=== PATIENT | female | born 1955 | race American Indian/Alaskan Native ===

== ENCOUNTER 2021-08-29 21:16 | Observation (INO) | payer BC ==
--- NOTE | 2021-08-30 09:59 | Emergency Department Report ---
ED GI Bleed HPI - General Chief complaint: GI Bleed Stated complaint: RECTAL BLEEDING Time Seen by Provider: 08/30/21 09:48 Source: patient, RN notes reviewed Mode of arrival: Ambulatory Limitations: No Limitations - History of Present Illness Initial comments: The patient was evaluated in the emergency department for symptoms described in the history of present illness. He/she was evaluated in the context of the global COVID-19 pandemic, which necessitated consideration that the patient might be at risk for infection with the virus that causes COVID-19. Institutional protocols and algorithms that pertain to the evaluation of patients at risk for COVID-19 are in a state of rapid change based on information released by regulatory bodies including the CDC and federal and state organizations. These policies and algorithms were followed during the patient's care in the emergency department. Please note that these policies, procedures and recommendations changed on a rapid basis. During the history and physical examination, I am chaperoned by nurse Balbir The patient is a 65-year-old female with a history of hypertension, who presents to the ER today with a complaint of painless bright red blood per rectum, only with defecation. This started yesterday. The patient does not take blood thinning medications. The patient reports having had a colonoscopy about 10 years ago, which she believes is remarkable for polyps. She otherwise feels like she is at her baseline, and denies additional injuries and complaints MD complaint: gross hematochezia -: Sudden Radiation: none Quality: painless Consistency: intermittent Improves with: none Worsens with: other (Defecation) Context: history of GI bleed Associated Symptoms: denies other symptoms - Related Data Previous Rx's Medication Instructions Recorded Last Taken Type Butalb/Acetamin/Caff 50-325-40 1 tab PO Q8H PRN #15 tab 07/17/15 Unknown Rx [Fioricet] cloNIDine [Catapres] 0.2 mg PO BID #60 tablet 07/17/15 Unknown Rx Allergies Allergy/AdvReac Type Severity Reaction Status Date / Time No Known Allergies Allergy Verified 07/17/15 10:19 ED Review of Systems ROS: Stated complaint: RECTAL BLEEDING Other details as noted in HPI Comment: All other systems reviewed and negative Gastrointestinal: hematochezia ED Past Medical Hx - Past Medical History Hx Hypertension: Yes Hx Diabetes: Yes Additional medical history: HIGH CHOLESTEROL - Surgical History Additional Surgical History: THYROIDECTOMY. TUBAL LIGATION. RIGHT ANKLE SURGERY - Social History Smoking Status: Never Smoker Substance Use Type: None - Medications Home Medications: Home Medications Medication Instructions Recorded Confirmed Last Taken Type Butalb/Acetamin/Caff 50-325-40 1 tab PO Q8H PRN #15 tab 07/17/15 Unknown Rx [Fioricet] cloNIDine [Catapres] 0.2 mg PO BID #60 tablet 07/17/15 Unknown Rx ED Physical Exam - General Limitations: No Limitations General appearance: alert, in no apparent distress - Head Head exam: Present: atraumatic, normocephalic - Eye Eye exam: Present: normal appearance, EOMI. Absent: nystagmus - ENT ENT exam: Present: normal exam, normal orophraynx, mucous membranes moist, normal external ear exam - Neck Neck exam: Present: normal inspection, full ROM. Absent: tenderness, meningismus - Respiratory Respiratory exam: Present: normal lung sounds bilaterally. Absent: respiratory distress, wheezes, rales, rhonchi, stridor, decreased breath sounds - Cardiovascular Cardiovascular Exam: Present: regular rate, normal rhythm, normal heart sounds. Absent: bradycardia, tachycardia, irregular rhythm, systolic murmur, diastolic murmur, rubs, gallop - GI/Abdominal GI/Abdominal exam: Present: soft. Absent: distended, tenderness, guarding, rebound, rigid, pulsatile mass - Rectal Rectal exam: Present: normal inspection (Patient provides consent for external and internal rectal examination), normal rectal tone, heme (+) stool, bloody stool, other (Chaperoned by nurse Betzy Mcgregor) - Extremities Exam Extremities exam: Present: normal inspection, full ROM, other (2+ pulses noted in the bilateral upper and lower extremities. There is no palpable cord. negative Homans sign. Muscular compartments are soft. The pelvis is stable.). Absent: pedal edema, calf tenderness - Back Exam Back exam: Present: normal inspection. Absent: tenderness, CVA tenderness (R), CVA tenderness (L), paraspinal tenderness, vertebral tenderness - Neurological Exam Neurological exam: Present: alert, oriented X3, normal gait, other (No facial droop. Tongue midline. Extraocular movements intact bilaterally. Facial sensation intact to light touch in V1, V2, V3 distribution bilaterally. 5 and a 5 strength in 4 extremities. Sensation intact to light touch in 4 extremi ties.). Absent: motor sensory deficit - Psychiatric Psychiatric exam: Present: anxious - Skin Skin exam: Present: warm, dry, intact, normal color. Absent: rash ED Course Vital Signs 08/29/21 21:36 Temperature 98.1 F Pulse Rate 85 Respiratory 16 Rate Blood Pressure 153/99 O2 Sat by Pulse 99 Oximetry - Reevaluation(s) Reevaluation #1: 08/30/21 10:41 Differential diagnosis, including but not limited to: Diverticulosis, internal hemorrhoid, angiodysplasia, malignancy Assessment and plan: 65-year-old female, who was afebrile, with reassuring vital signs, presenting to the ER today with complaint of painless rectal bleeding, only with defecation. Last had a colonoscopy approximately [address] patient on cardiac cath technician, obtain appropriate laboratory studies. Currently awaiting callback from GI on-call, to discuss. CBC unremarkable. Chemistry pending. PT, INR within normal limits. PTT 65, suspect laboratory error. Anticipate admission. 08/30/21 10:41 08/30/21 10:49 Chemistry reviewed and appreciated. Contacted GI on-call, Dr. Escobedo. Discussed the patient's history, physical, laboratory studies and clinical impression. He will follow in consultation, and agrees with plan for admission. Hospital physician, Dr. Cho, to admit patient to the medical service. Discussed this with the patient, she is agreeable to the plan of care ED Medical Decision Making - Lab Data Result diagrams: 08/30/21 Unknown 08/30/21 Unknown Vital Signs 08/29/21 21:36 Temperature 98.1 F Pulse Rate 85 Respiratory 16 Rate Blood Pressure 153/99 O2 Sat by Pulse 99 Oximetry Lab Results 08/30/21 08/30/21 Range/Units Unknown Unknown WBC 6.5 (4.5-11.0) K/mm3 RBC 3.91 (3.65-5.03) M/mm3 Hgb 10.7 (10.1-14.3) gm/dl Hct 32.1 (30.3-42.9) % MCV 82 (79-97) fl MCH 27 L (28-32) pg MCHC 33 (30-34) % RDW 14.8 (13.2-15.2) % Plt Count 333 (140-440) K/mm3 PT 14.1 (12.2-14.9) Sec. INR 0.98 (0.87-1.13) APTT 65.0 H* (24.2-36.6) Sec. - EKG Data -: EKG Interpreted by Me EKG shows normal: sinus rhythm Rate: normal - EKG Data When compared to previous EKG there are: previous EKG unavailable 08/30/21 10:37 The EKG is interpreted at 09: 4 0 Sinus rhythm, bradycardia, 58 bpm. Normal axis, normal intervals, normal P wave axis. Minimal motion artifact. This EKG is not a STEMI Critical care attestation.: If time is entered above; I have spent that time in minutes in the direct care of this critically ill patient, excluding procedure time. ED Disposition Clinical Impression: GI bleed Disposition: ADMITTED INPATIENT Is pt being admited?: Yes Does the pt Need Aspirin: No Condition: Good Referrals: PRIMARY CARE, [Primary Care Provider] - 3-5 Days Forms: Accompanied Note
[2021-08-30 10:27] LABS: Hematocrit 32.1 % (30.3-42.9); Hemoglobin 10.7 gm/dl (10.1-14.3); Mean Corpuscular HGB Conc 33 % (30-34); Mean Corpuscular Volume 82 fl (79-97); Platelet Count 333 K/mm3 (140-440); Red Blood Count 3.91 M/mm3 (3.65-5.03); Red Cell Distribution Width 14.8 % (13.2-15.2)
[2021-08-30 10:29] LABS: INR 0.98 (0.87-1.13)
[2021-08-30 10:42] LABS: Alanine Aminotransferase 16 units/L (7-56); Albumin 4.7 g/dL (3.9-5); BUN/Creatinine Ratio 26; Blood Urea Nitrogen 26 mg/dL (7-17); Calcium 9.5 mg/dL (8.4-10.2); Hemolysis Index 0
[2021-08-30] MEDS ORDERED: SODIUM CHLORIDE 0.9% 1000 ML 1,000 ML IV ONE (10:44)
[2021-08-30] MEDS ORDERED: PANTOPRAZOLE 40 MG INJ IV ONE ×2 (10:48→14:00)
[2021-08-30] MEDS ORDERED: ALBUTEROL 2.5 MG/3 ML NEBU IH PRN (11:25)
[2021-08-30] MEDS ORDERED: ONDANSETRON 4 MG/2 ML INJ IV PRN (11:25)
[2021-08-30] MEDS ORDERED: oxyCODONE /ACETAMINOPHEN 5-325MG TAB PO PRN (11:25)
[2021-08-30] MEDS ORDERED: HYDROmorphone 0.5 MG/0.5 ML INJ IV PRN (11:25)
[2021-08-30] MEDS ORDERED: ACETAMINOPHEN 325 MG TAB PO PRN (11:25)
--- NOTE | 2021-08-30 11:25 | History and Physical Report ---
History of Present Illness Chief complaint: And bleeding when I go to the bathroom, I also feel dizzy. History of present illness: 65 YO Female with HTN, Obesity Hypoventilation Syndrome, DM, HLD, Metabolic Syndrome presents to ED for evaluation. Patient reports ambulating when I go to the bathroom". Patient states that over the past 1 day she has experienced multiple episodes of bright red blood per rectum with defecation. Patient also acknowledges concomitant dizziness, lightheadedness and possible loss of co nsciousness. Patient transported to [facility] via private vehicle for further care and evaluation of the aforementioned symptoms. The patient was seen and evaluated in the emergency department. All lab and imaging studies reviewed. Patient found to be Hemoccult positive in the emergency department. Patient also found to have active GI bleed. Patient also found to have a blood pressure of 182/95 mmHg. Patient admitted to telemetry due to increased risk of worsening symptoms. GI team consulted in ED. Patient initiated on GI bleed protocol. Patient pending endoscopy as per GI team. Patient denies fever, chills, chest pain, palpitation, productive cough, skin rash, recent contact, trauma, ingestion of food/water from new or different sources, or known exposure to COVID-19. No prior admission for review. All medication listed at time of admission has been reconciled. Advanced care planning conducted in ED. Past History Past Medical History: diabetes, hypertension, hyperlipidemia, other (See HPI) Past Surgical History: thyroidectomy, Other (Tubal ligation, right ankle surgery) Social history: , lives with family Family history: diabetes, hypertension Medications and Allergies Allergies Allergy/AdvReac Type Severity Reaction Status Date / Time No Known Allergies Allergy Verified 07/17/15 10:19 Home Medications Medication Instructions Recorded Confirmed Last Taken Type Insulin Glargine 36 ampul 08/30/21 08/29/21 19:00 History 36 Labetalol 300mg TAB 450 08/30/21 08/29/21 19:00 History Lovastatin 100 08/30/21 08/29/21 09:00 History NIFEdipine [Adalat cc] 90 08/30/21 08/29/21 09:00 History Prazosin [Minipress] 2 08/30/21 08/29/21 09:00 History Zocor 20 08/30/21 08/30/21 12:40 History 20 metFORMIN [Glucophage] 500 BID 08/30/21 08/29/21 19:00 History Active Meds: Active Medications Sodium Chloride (Nacl 0.9% 1000 Ml) 1,000 mls @ 999 mls/hr IV BOLUS ONE Stop: 08/30/21 11:44 Review of Systems Constitutional: fatigue, weakness, no weight loss, no weight gain, no fever, no chills Ears, nose, mouth and throat: no ear pain, no tinnitis, no decreased hearing, no nose pain, no nasal congestion Breasts: no change in shape, no mass Cardiovascular: lightheadedness, no chest pain, no orthopnea, no rapid/irregular heart beat, no syncope Respiratory: no cough, no excessive sputum, no hemoptysis Gastrointestinal: BRBPR, no abdominal pain, no nausea, no vomiting, no diarrhea Genitourinary Female: no pelvic pain, no flank pain, no dysuria, no urinary frequency, no urgency Rectal: no pain, no incontinence, no bleeding Musculoskeletal: no neck stiffness, no shooting arm pain Integumentary: no rash, no pruritis Neurological: syncope, no head injury, no paralysis, no parathesias, no tingling Psychiatric: no anxiety, no sleep disturbances, no insomnia, no hypersomnia, no suicidal ideation, no hallucinations Endocrine: no cold intolerance, no heat intolerance, no polydipsia, no nocturia, no flushing, no weight change Hematologic/Lymphatic: no easy bruising, no easy bleeding, no lymphedema Allergic/Immunologic: no allergic rhinitis, no wheezing, no anaphylaxis Exam - Constitutional Vitals: Temp Pulse Resp BP Pulse Ox 98.1 F 85 16 153/99 99 08/29/21 21:36 08/29/21 21:36 08/29/21 21:36 08/29/21 21:36 08/29/21 21:36 General appearance: Present: mild distress, obese - EENT Eyes: Present: PERRL ENT: hearing intact, clear oral mucosa - Neck Neck: Present: supple, normal ROM - Respiratory Respiratory effort: normal Respiratory: bilateral: CTA - Cardiovascular Heart Sounds: Present: S1 & S2. Absent: rub, click - Extremities Extremities: pulses symmetrical, No edema Peripheral Pulses: within normal limits - Abdominal General gastrointestinal: Present: soft, non-tender, non-distended, normal bowel sounds Female genitourinary: Present: normal - Integumentary Integumentary: Present: clear, warm, dry - Musculoskeletal Musculoskeletal: gait normal, strength equal bilaterally - Psychiatric Psychiatric: appropriate mood/affect, intact judgment & insight - Neurologic Neurologic: CNII-XII intact, moves all extremities Results - Labs CBC & Chem 7: 08/30/21 Unknown 08/30/21 Unknown Labs: Abnormal lab results 08/30/21 08/30/21 08/30/21 Range/Units Unknown Unknown Unknown MCH 27 L (28-32) pg APTT 65.0 H* (24.2-36.6) Sec. Sodium 135 L (137-145) mmol/L Potassium 3.5 L (3.6-5.0) mmol/L Chloride 97.8 L (98-107) mmol/L BUN 26 H (7-17) mg/dL Glucose 241 H (65-100) mg/dL Total Protein 8.4 H (6.3-8.2) g/dL Assessment and Plan - Patient Problems (1) Gastrointestinal hemorrhage Current Visit: Yes Status: Acute Qualifiers: GI bleed type/associated pathology: anorectal hemorrhage Qualified Code(s): K62.5 - Hemorrhage of anus and rectum Plan to address problem: GI bleed protocol: CBC, bowel rest, IV PPI therapy, GI team consulted, serial a bdominal exam, supportive care, will consider packed red blood cell transfusion if patient hemoglobin drops greater than 1 g in 24-hour period. (2) Blood loss anemia Current Visit: Yes Status: Acute Plan to address problem: Supportive care, initiate GI bleed protocol. CBC, repeat CBC in a.m. (3) Obesity hypoventilation syndrome Current Visit: Yes Status: Acute Plan to address problem: Balanced diet, increase physical activity at discharge, outpatient pulmonary follow-up for sleep study. (4) Accelerated hypertension Current Visit: Yes Status: Acute Plan to address problem: Monitor blood pressure every shift, continue medical management. (5) Diabetes Current Visit: Yes Status: Acute Plan to address problem: Consistent carbohydrate diet, Accu-Chek, insulin protocol, hypoglycemia protocol. (6) Hyperlipidemia Current Visit: Yes Status: Acute Qualifiers: Hyperlipidemia type: mixed hyperlipidemia Qualified Code(s): E78.2 - Mixed hyperlipidemia Plan to address problem: Low-cholesterol diet, statin therapy, supportive care. (7) Metabolic syndrome Current Visit: Yes Status: Acute Plan to address problem: Balanced diet, weight reduction, increase physical activity discharge, continue statin therapy. (8) DVT prophylaxis Current Visit: Yes Status: Acute Plan to address problem: SCD to bilateral lower extremities while in bed, hold anticoagulation for now due to active GI bleed. (9) Advance care planning Current Visit: Yes Status: Acute Plan to address problem: Disease education data, care plan discussed, diagnosis discussed, prognosis discussed, patient is full code. Patient acknowledges understanding and agreement with care plan, +30 minutes. (10) Preventative health care Current Visit: Yes Status: Acute Plan to address problem: Patient counseled regarding balanced diet, increase physical activity discharge, weight reduction, meal planning. Outpatient follow-up with primary care physician for all age and risk factor appropriate screening tests. +30 minutes.
[2021-08-30] MEDS ORDERED: DEXTROSE 50% IN WATER (25GM) 50 ML SYRINGE IV PRN (12:46)
[2021-08-30] MEDS: amLODIPine 5 MG TAB PO SCH (13:06)
[2021-08-30] MEDS: hydroCHLOROthiazide 12.5 MG CAP PO SCH (13:07)
[2021-08-30] MEDS: INSULIN LISPRO 100 UNIT/ML SUB-Q SCH ×2 (17:20→23:19)
[2021-08-30] MEDS ORDERED: POLYETHYLENE GLYCOL/ELECT SOLN 4000 ML PO SCH (18:37)
[2021-08-30] MEDS ORDERED: PRAVASTATIN 40 MG TAB PO SCH (22:00)
[2021-08-30] MEDS ORDERED: ZOCOR 20 MG PO SCH (22:00)
[2021-08-30] MEDS: PANTOPRAZOLE 40 MG INJ IV SCH (23:25)
[2021-08-30] MEDS ORDERED: hydrALAZINE 20 MG/1 ML INJ IV PRN (23:34)
[2021-08-31 00:07] LABS: Basophils % (Auto) 0.8 % (0.0-1.8); Eosinophils # (Auto) 0.2 K/mm3 (0.0-0.4); Hematocrit 29.6 % (30.3-42.9); Hemoglobin 9.9 gm/dl (10.1-14.3); Lymphocytes # (Auto) 1.8 K/mm3 (1.2-5.4); Lymphocytes % (Auto) 31.4 % (13.4-35.0); Mean Corpuscular HGB Conc 33 % (30-34); Mean Corpuscular Volume 82 fl (79-97); Monocytes # (Auto) 0.4 K/mm3 (0.0-0.8); Monocytes % (Auto) 7.1 % (0.0-7.3); Platelet Count 317 K/mm3 (140-440); Red Blood Count 3.62 M/mm3 (3.65-5.03); Red Cell Distribution Width 14.7 % (13.2-15.2)
[2021-08-31 00:14] LABS: Alanine Aminotransferase 14 units/L (7-56); Albumin 4.2 g/dL (3.9-5); BUN/Creatinine Ratio 19; Blood Urea Nitrogen 19 mg/dL (7-17); Calcium 9.4 mg/dL (8.4-10.2); Hemolysis Index 6
--- NOTE | 2021-08-31 03:00 | Consultation ---
DATE OF CONSULTATION: 08/30/2021 REFERRING PHYSICIAN: Dr. Rolf Cho. INDICATIONS: 1. Anemia. 2. Gastrointestinal bleed. HISTORY OF PRESENT ILLNESS: The patient is a 65-year-old black female with history of hypertension, obesity and hypoventilation syndrome as well as diabetes and metabolic syndrome. The patient reports her last colonoscopy was over 10 years ago with polyps noted. The patient presents with 2 days of multiple bouts of approximately 4-5 episodes of bright red blood per rectum as well as some dark stools. She reports mild epigastric pain. Denies any hematemesis. She reports some nausea without vomiting. No recent weight loss or anemia. The patient subsequently came to the Emergency Room, was noted to have heme positive stool, admitted and GI consulted. No other specific complaints. PAST MEDICAL HISTORY: 1. Diabetes. 2. Hypertension. 3. High cholesterol. MEDICATIONS: Reviewed and updated in chart. ALLERGIES: No known drug allergies. SOCIAL HISTORY: Denies alcohol, tobacco or drug abuse. FAMILY HISTORY: Negative for colon cancer, IBD, or liver disease. REVIEW OF SYSTEMS: GENERAL: Reports some weakness. HEENT: Denies visual complaints, denies tinnitus. PULMONARY: Denies shortness of breath, chest pain. GASTROINTESTINAL: Reports rectal bleeding. All points of 13-point review of system otherwise negative. PHYSICAL EXAMINATION: VITAL SIGNS: Temperature of 98.0, pulse 60, respirations 18, blood pressure 170/70. GENERAL: Well nourished female, in no acute distress. HEENT: Pupils equal, round and reactive. PULMONARY: Clear to auscultation bilaterally. CARDIOVASCULAR: Regular rate and rhythm. Normal S1, S2. ABDOMEN: Positive bowel sounds, soft. SKIN: No obvious rashes. LABORATORY DATA: Pertinent for white count of 6.5, hemoglobin and hematocrit of 10.7 and 32.1, platelet count of 333. Coags within normal limits except for PTT of 65. Chem-7 within normal limits. LFTs within normal limits. ASSESSMENT: A 65-year-old female with history of colon polyps over 10 years ago with multiple medical problems as noted above, now presents with mainly bright red and occasional dark stools with noted anemia. Most likely lower gastrointestinal bleed is secondary to diverticular bleed, but also possibility of other pathology. PLAN: 1. Follow hematocrit and transfuse as needed. 2. Clear liquid diet with n.p.o. after midnight. 3. Avoid NSAIDs and aspirin. 4. Antiemetics and pain medications per primary team. 5. Plan for colonoscopy with possible EGD in a.m. TID: [id number] RECEIPT: [id number] ELENA/MAC
[2021-08-31 06:04] LABS: Basophils # (Auto) 0.1 K/mm3 (0.0-0.1); Eosinophils # (Auto) 0.2 K/mm3 (0.0-0.4); Eosinophils % (Auto) 2.9 % (0.0-4.3); Hematocrit 30.9 % (30.3-42.9); Hemoglobin 9.8 gm/dl (10.1-14.3); Lymphocytes # (Auto) 1.8 K/mm3 (1.2-5.4); Mean Corpuscular HGB Conc 32 % (30-34); Mean Corpuscular Volume 83 fl (79-97); Monocytes # (Auto) 0.4 K/mm3 (0.0-0.8); Platelet Count 320 K/mm3 (140-440); Red Blood Count 3.73 M/mm3 (3.65-5.03); Red Cell Distribution Width 15.1 % (13.2-15.2)
[2021-08-31] MEDS ORDERED: LIDOCAINE MPF (2%) 20 MG/1 ML VIAL 5 ML ONE (07:38)
[2021-08-31] MEDS ORDERED: propofoL 200 MG/20 ML VIAL IV ONE (07:38)
[2021-08-31] MEDS ORDERED: WATER FOR IRRIG STERILE 1,000 ML BOTTLE ONE (07:44)
[2021-08-31] MEDS ORDERED: WATER FOR IRRIG STERILE 250 ML BOTTLE IR ONE (07:44)
[2021-08-31] MEDS ORDERED: SODIUM CHLORIDE 0.9% 1000 ML 1,000 ML ONE (07:49)
--- NOTE | 2021-08-31 07:57 | Anesthesia Day of Surgery ---
Anesthesia Day of Surgery - Day of Surgery Patient Examined: Yes Patient H&P Reviewed: Yes Patient is NPO: Yes
--- NOTE | 2021-08-31 08:01 | Anesthesia Consultation ---
Anesthesia Consult and Med Hx Date of service: 08/31/21 - Airway ROM Head & Neck: Adequate Mental/Hyoid Distance: Adequate Mallampati Class: Class II Intubation Access Assessment: Probably Good - Pulmonary Exam CTA: Yes - Cardiac Exam Cardiac Exam: RRR - Pre-Operative Health Status ASA Pre-Surgery Classification: ASA3 Proposed Anesthetic Plan: MAC - Pulmonary Hx Sleep Apnea: Yes (hypoventilation syndrome) - Cardiovascular System Hx Hypertension: Yes - Endocrine Hx Insulin Dependent Diabetes: Yes - Hematic Hx Anemia: Yes - Other Systems Hx Obesity: Yes
--- NOTE | 2021-08-31 08:23 | Post Operative Note ---
Pre-op diagnosis: gi bleed Post-op diagnosis: same Findings: egd: hiatal hernia - irregular z-line (bx's) - mild gastritis (bx's) - negative other Procedure: egd w/ bx Anesthesia: MAC Surgeon: JULITA BARROW Estimated blood loss: none Pathology: list Specimen disposition: to lab Condition: stable Disposition: floor
--- NOTE | 2021-08-31 08:45 | Operative Report ---
DATE OF SURGERY: 08/31/2021 PROCEDURE: EGD with cold biopsy. INDICATIONS: 1. Anemia. 2. Gastrointestinal bleed. MEDICATIONS: Propofol per [employer]LYST. COMPLICATIONS: None. DESCRIPTION OF PROCEDURE: The patient was brought to the procedure suite. The patient had the procedure discussed with her at length. All risks, complications and benefits discussed, after which the patient signed for the procedure to be performed. The patient was placed in a left lateral decubitus position. A mouth block placed in the patient's oral cavity. After adequate sedation with medications as above, endoscope placed in the mouth and brought to the level of the second portion of duodenum. Retroflexion view performed. The patient's vital signs remained stable throughout the procedure. FINDINGS: There is an irregular Z line, probably from acid reflux noted 38 cm from the gums. Biopsies were taken and sent for pathology. There was a small hiatal hernia noted at GE junction. The esophagus otherwise appeared to be normal. There was mild antral gastritis noted. Biopsies were taken and sent to pathology. The remaining stomach otherwise appeared to be normal. The duodenum appeared to be normal. Retroflexion view performed in the stomach showed no other pathology other than noted above. The patient tolerated the procedure well. No complications noted during the procedure. IMPRESSION: 1. Hiatal hernia. 2. Irregular Z line, biopsies performed. 3. Mild gastritis with biopsies performed. 4. Otherwise normal esophagogastroduodenoscopy. RECOMMENDATIONS: 1. Follow up biopsy results. 2. If H. pylori positive, we will treat. 3. PPI daily. 4. Advance diet. 5. The patient was not given a prep and so it was elected to be discharged with colonoscopy as an outpatient. 6. Okay to discharge from GI standpoint. TID: [id number] RECEIPT: [id number] CAB/ARV
[2021-08-31] MEDS: INSULIN LISPRO 100 UNIT/ML SUB-Q SCH ×2 (09:08→12:07)
[2021-08-31] MEDS ORDERED: NON-FORMULARY EACH (Levothyroxine Sodium [Levothyroxine] 137 MCG Capsule) PO SCH (10:00)
[2021-08-31] MEDS ORDERED: LABETALOL 300 MG PO SCH (10:00)
[2021-08-31] MEDS ORDERED: NON-FORMULARY EACH (Prazosin [Minipress] 2 MG Capsule) PO SCH (10:00)
[2021-08-31] MEDS ORDERED: NON-FORMULARY EACH (Nifedipine [Adalat Cc] 90 MG Tablet.Er) PO SCH (10:00)
[2021-08-31] MEDS ORDERED: glyBURIDE 5 MG TAB PO SCH (10:15)
--- NOTE | 2021-08-31 10:52 | Discharge Summary ---
Providers - Providers Date of Admission: 08/30/21 11:25 Date of discharge: 08/31/21 Attending physician: WANDA HILTON 08/30/21 09:56 Consult to Physician [CONS] Urgent Comment: Consulting Provider: JULITA BARROW Physician Instructions: Reason For Exam: gi bleed Hospitalization Condition: Good Disposition: 01 HOME / SELF CARE / HOMELESS Final Discharge Diagnosis (Prints w/discharge instructions): --Rectal bleeding. --Anemia due to blood loss. --hypertensive urgency. --Diabetes mellitus type 2. -- Morbid obesity. -- Hypothyroidism Time spent for discharge: 34 minutes Exam - Constitutional Vitals: Temp Pulse Resp BP Pulse Ox 99.0 F 72 14 142/64 100 08/31/21 08:22 08/31/21 08:45 08/31/21 08:45 08/31/21 08:45 08/31/21 08:45 Plan Activity: advance as tolerated Weight Bearing Status: Weight Bear as Tolerated Diet: other (GI soft fibre rich diet) Follow up with: PRIMARY MD ANY [Referring] - 3-5 Days JULITA BARROW MD [Staff Physician] - 7 Days Forms: Accompanied Note
[2021-08-31] MEDS ORDERED: LEVOTHYROXINE 25 MCG TAB PO SCH (11:00)
[2021-08-31] MEDS ORDERED: NIFEdipine XL 90 MG TAB PO SCH (11:00)
[2021-08-31] MEDS ORDERED: LEVOTHYROXINE 112 MCG TAB PO SCH (11:00)
[2021-08-31] MEDS ORDERED: metFORMIN 500 MG TAB PO SCH (11:00)
[2021-08-31] MEDS ORDERED: PRAZOSIN 1 MG CAP PO SCH (11:00)
[2021-08-31] MEDS: hydroCHLOROthiazide 12.5 MG CAP PO SCH (11:18)
[2021-08-31] MEDS: PANTOPRAZOLE 40 MG INJ IV SCH (11:19)
[2021-08-31] MEDS: amLODIPine 5 MG TAB PO SCH (11:22)
[2021-08-31 12:46] VITALS: BP 126/68
== END 2021-08-31 12:50 | disposition home or self-care (01) ==
LOC: ED 21:16 → 4A 08-30 11:25 → INTOOBSV 08-30 11:25 → 4A 08-30 19:10
PROVIDERS: ADMIT Internal Medicine; ATTEND Internal Medicine
DX: K92.2 Gastrointestinal hemorrhage, unspecified (principal); D50.0 Iron deficiency anemia secondary to blood loss (chronic); E66.2 Morbid (severe) obesity with alveolar hypoventilation; I10 Essential (primary) hypertension; E11.9 Type 2 diabetes mellitus without complications; E78.5 Hyperlipidemia, unspecified; E78.00 Pure hypercholesterolemia, unspecified; E03.9 Hypothyroidism, unspecified; E88.81 Metabolic syndrome and other insulin resistance; Z68.36 Body mass index [BMI] 36.0-36.9, adult; Z90.49 Acquired absence of other specified parts of digestive tract; Z79.899 Other long term (current) drug therapy; Z98.51 Tubal ligation status; Z98.890 Other specified postprocedural states; Z79.4 Long term (current) use of insulin; Z79.84 Long term (current) use of oral hypoglycemic drugs
CPT/HCPCS: 36415; 43239; 80053; 82270; 82962; 83036; 85025; 85027; 85610; 85730; 93005; 99285; C9113; G0378; J0360; J2704; J3490; J7030; 88305; 96361; 96372; 96374; 96375; 96376; Q9967; J1815